=== PATIENT | female | born 1995 | race Caucasian/White ===

== ENCOUNTER 2017-04-02 19:47 | Emergency (ER) | payer SELFPAY ==
--- NOTE | 2017-04-02 20:19 | UC ---
Shoulder Pain HPI - HPI Summary HPI Summary: Pt presents with c/o left shoulder pain that began 1-2 months ago after she lifted a fifty pound bag of flour at work. Pt reports that she heard a "pop" and has had continuous pain with ROM and lifting since the bag of flour. - History of Current Complaint Chief Complaint: UCUpperExtremity Stated Complaint: WORK INJURY-LT SLDR/ARM PAIN-POSS PULLED MUSCLE Time Seen by Provider: 04/02/17 20:04 Hx Obtained From: Patient Hx Last Menstrual Period: 03/27/17 ?: No Onset/Duration: Gradual Onset, Lasting Weeks - 4-8 weeks Timing: Constant Severity Initially: Mild Severity Currently: Mild Character: Dull, Aching Aggravating Factor(s): Movement Related History: Dominant Hand Right - Risk Factors Non-Orthopedic Risk Factor: Negative - Allergies/Home Medications Allergies/Adverse Reactions: Allergies Allergy/AdvReac Type Severity Reaction Status Date / Time No Known Allergies Allergy Verified 04/02/17 20:03 Home Medications: Home Medications Acetaminophen [Acetaminophen Extra Stren] 1,000 mg PO Q6H 04/02/17 [History Confirmed 04/02/17] PMH/Surg Hx/FS Hx/Imm Hx Previously Healthy: Yes - Surgical History Surgical History: None - Family History Known Family History: Positive: Other - positive [facility] for myalgia - Social History Alcohol Use: Rare Substance Use Type: None Smoking Status (MU): Current Some Day Smoker Type: Cigarettes Amount Used/How Often: 3 CIGS PER DAY Have You Smoked in the Last Year: Yes Review of Systems Constitutional: Negative Skin: Negative Eyes: Negative ENT: Negative Respiratory: Negative Cardiovascular: Negative Gastrointestinal: Negative Genitourinary: Negative Motor: Other - pain with ROM Neurovascular: Negative Musculoskeletal: Arthralgia, Myalgia - left shoulder Neurological: Negative Psychological: Negative All Other Systems Reviewed And Are Negative: Yes Physical Exam Triage Information Reviewed: Yes Appearance: Well-Appearing Vital Signs: Initial Vital Signs Temp 98.4 F 04/02/17 19:54 Pulse 96 04/02/17 19:54 Resp 16 04/02/17 19:54 BP 132/71 04/02/17 19:54 Pulse Ox 99 04/02/17 19:54 Vital Signs Reviewed: Yes Eye Exam: Normal Neck exam: Normal Respiratory Exam: Normal Respiratory: Positive: No respiratory distress Musculoskeletal Exam: Other Musculoskeletal: Positive: ROM Limited @ - Pain left shoulder with ROM Neurological Exam: Normal Psychological Exam: Normal Skin Exam: Normal Shoulder Course/Dx - Differential Dx/Diagnosis Differential Diagnosis/HQI/PQRI: Tendonitis, Other - over use syndrome Provider Diagnoses: left shoulder tendinitis. over use syndrome Discharge - Discharge Plan Condition: Stable Disposition: HOME Patient Education Materials: Tendinitis (ED), Shoulder Pain (ED) Referrals: [facility] [place] [facility] [Outside] Additional Instructions: Please follow up with your PCP or return to clinic as needed.
[2017-04-02 20:29] VITALS: BP 132/71
== END 2017-04-02 20:32 | disposition home or self-care (01) ==
LOC: UCCORT 19:47
DX: M75.92 Shoulder lesion, unspecified, left shoulder (principal); M70.812 Other soft tissue disorders related to use, overuse and pressure, left shoulder; X50.0XXA Overexertion from strenuous movement or load, initial encounter; Y93.89 Activity, other specified; Y92.9 Unspecified place or not applicable; Y99.0 Civilian activity done for income or pay; Z72.0 Tobacco use
CPT/HCPCS: 99201; G0463